=== PATIENT | female | born 1950 | race Caucasian/White ===

== ENCOUNTER → 2017-02-11 | Outpatient (CLI) | payer BC ==
[~2017-02-11] MED LIST: AMIT75TA2 PO; ASPI-586 PO; CA C1TAB74 PO; CHOL200014 PO; DOCU-34 PO; ELET40TA PO; ESTR0.5T PO; ESZO3TAB38 PO; FEXO1TAB40 PO; METH500T5 PO; MNTL10T PO; PRV20T PO; TRIA10.8 NS
[2017-02-11 08:42] LABS: BASOPHILS % (AUTO) 0 % (0-2); EOSINOPHILS # (AUTO) 0.1 10^3uL; EOSINOPHILS % (AUTO) 2 % (0-4); MEAN CORPUSCULAR HEMOGLOBIN 30.2 PG (26.0-34.0); MEAN CORPUSCULAR HGB CONC 32.9 g/dL (31.0-37.0); MEAN CORPUSCULAR VOLUME 92 FL (80-100); MONOCYTES # (AUTO) 0.4 X10^3; MONOCYTES % (AUTO) 8 % (3-11); NEUTROPHILS # (AUTO) 2.2 X10^3; NEUTROPHILS % (AUTO) 47 % (51-67); PLATELET COUNT 247 10^3uL (150-450); WHITE BLOOD COUNT 4.73 10^3uL (4.0-11.0)
[2017-02-11 08:55] LABS: ANION GAP 13.2 MEQ/L (3-15); BUN/CREATININE RATIO 20 (10-20)
[2017-02-11 08:56] LABS: ALBUMIN 4.2 g/dL (3.4-5.0); ALKALINE PHOSPHATASE 66 U/L (38-126); CALCULATED IONIZED CALCIUM 4.3 mg/dL (3.8-4.6); CREATINE KINASE < 20 U/L (30-135)
--- NOTE | 2017-02-11 10:33 | Diagnostic Imaging Report ---
INDICATION: Yearly physical. FINDINGS: Frontal and lateral views of the chest are compared to an exam from 12/29/2013. The exam demonstrates the lungs to be clear. The heart, mediastinum, pulmonary vascularity, and visualized bony thorax are normal. IMPRESSION: Normal chest. Dictated by: Dictated on workstation # [id number]
== END ==
LOC: LAB 08:24
PROVIDERS: ATTEND Family Medicine
DX: Z00.00 Encounter for general adult medical examination without abnormal findings (principal); M81.0 Age-related osteoporosis without current pathological fracture
CPT/HCPCS: 36415; 71020; 80053; 80061; 82306; 82550; 82977; 83036; 84436; 84443; 85025; 93005